=== PATIENT | male | born 1960 | race Two or more races ===

== ENCOUNTER 2017-12-25 14:42 | Emergency (ER) | payer SELFPAY ==
[~2017-12-25] VITALS: Ht 177.8 cm; Wt 72.6 kg
[2017-12-25 14:42] VITALS: BP 108/78
== END 2017-12-25 15:35 | disposition home or self-care (01) ==
LOC: ER 14:43
DX: F10.20 Alcohol dependence, uncomplicated (principal); Z63.72 Alcoholism and drug addiction in family
CPT/HCPCS: A4606; Z7610